=== PATIENT | female | born 1950 | race Caucasian/White ===

== ENCOUNTER 2021-08-26 18:48 | Inpatient (IN) | payer MEDICARE ==
[~2021-08-26] VITALS: Ht 160 cm; Wt 107.0 kg
[~2021-08-26 18:48] MED LIST: DULERA 100 MCG/13 GM INH; HYDROCODON-ACE1 EA10 PO; KEPPRA750 MG PO; LEVOTHYROXINE75 MC1 PO; LISINOPRIL10 MG PO; LORAZEPAM1 MG PO; LOW DOSE ASPIRI81 MG PO; MYSOLINE50 MG PO; PAXIL10 MG PO; PRAVACHOL40 MG PO; PREDNISONE20 MG PO; PROVENTIL HFA6.7 GM INH; TOPROL XL25 MG PO; TRANSDERM-SCOP1 EA TD; VERAPAMIL HCL120 MG PO; XANAX1 MG PO; ZETIA10 MG PO; ZITHROMAX250 MG PO; ZOLPIDEM TARTRA10 MG PO
[2021-08-26] MEDS ORDERED: LIPITOR40 MG PO (19:07)
[2021-08-26] MEDS ORDERED: ALLOPURINOL300 MG PO (19:07)
[2021-08-26] MEDS ORDERED: NEURONTIN300 MG PO (19:10)
[2021-08-26] MEDS ORDERED: TOPROL XL50 MG PO (19:10)
[2021-08-26] MEDS ORDERED: CYMBALTA30 MG PO (19:11)
[2021-08-27] MEDS ORDERED: IPRAT-ALBUT 0.5-3 ML INH (12:14)
[2021-08-27] MEDS ORDERED: STIOLTO RESPIMAT4 GM INH (13:47)
--- NOTE | 2021-08-27 17:16 | EKG ---
[facility] [address] [facility] [place], [place] [address] Signed Normal sinus rhythm Septal infarct , age undetermined Abnormal ECG No previous ECGs available Confirmed by YANN COWAN MD ([id number]) on 08/27/2021 5:16:34 PM Electronically Signed By: YANN COWAN MD 08/27/21 1716 PATIENT NAME: OVIDIO BENTON EDILBERTO Electrocardiogram DATE OF : 54 PHYSICIAN: YANN COWAN MD REPORT #: [id number] REPORT IS CONFIDENTIAL AND NOT TO BE RELEASED WITHOUT AUTHORIZATION
[2021-08-29] MEDS ORDERED: IPRAT-ALBUT 0.5-3 ML INH (13:03)
[2021-08-29] MEDS ORDERED: NEBULIZER UNIT XX (13:03)
[2021-09-02] MEDS ORDERED: AMLODIPINE BESY10 MG PO (11:23)
[2021-09-02] MEDS ORDERED: LOSARTAN POTASS50 MG PO (11:24)
[2021-09-02] MEDS ORDERED: PREDNISONE20 MG PO (11:26)
[2021-09-02] MEDS ORDERED: BUDESONIDE0.5 MG/2 M INH (12:20)
== END 2021-09-02 13:05 | disposition home or self-care (01) | DRG 191 ==
LOC: ED 18:48 → CCU 21:36 → MS 08-31 10:05
PROVIDERS: ADMIT Internal Medicine; ATTEND Internal Medicine
PROC: 5A09457 Assistance with Respiratory Ventilation, 24-96 Consecutive Hours, Continuous Positive Airway Pressure (ICD-10-PCS; principal; 2021-08-27)
DX: J44.1 Chronic obstructive pulmonary disease with (acute) exacerbation (principal); J96.11 Chronic respiratory failure with hypoxia; J96.12 Chronic respiratory failure with hypercapnia; I10 Essential (primary) hypertension; Z20.822 Contact with and (suspected) exposure to COVID-19; E03.9 Hypothyroidism, unspecified; E78.5 Hyperlipidemia, unspecified; I25.10 Atherosclerotic heart disease of native coronary artery without angina pectoris; Z66 Do not resuscitate; F41.1 Generalized anxiety disorder; Z87.891 Personal history of nicotine dependence; I25.2 Old myocardial infarction; Z90.49 Acquired absence of other specified parts of digestive tract; Z90.710 Acquired absence of both cervix and uterus; Z98.890 Other specified postprocedural states; Z79.82 Long term (current) use of aspirin; Z79.899 Other long term (current) drug therapy
CPT/HCPCS: 36415; 71045; 80053; 82803; 83735; 83880; 84484; 85025; 93005; 93010; 94640; 94644; 94660; 94667; 94668; 94760; 96374; 96375; 97110; 97116; 97161; 97165; 99285-25; A9270; J1650; J2920; J2930; J3475; J7512; U0003

== ENCOUNTER 2021-09-10 18:12 | Observation (INO) | payer MEDICARE ==
[~2021-09-10] VITALS: Ht 160 cm; Wt 101.0 kg
[~2021-09-10 18:12] MED LIST changes: +ALLOPURINOL300 MG PO; +AMLODIPINE BESY10 MG PO; +BUDESONIDE0.5 MG/2 M INH; +CYMBALTA30 MG PO; +IPRAT-ALBUT 0.5-3 ML INH; +LIPITOR40 MG PO; +LOSARTAN POTASS50 MG PO; +NEBULIZER UNIT XX; +NEURONTIN300 MG PO; +STIOLTO RESPIMAT4 GM INH; +TOPROL XL50 MG PO
--- OUTSIDE RECORDS SUMMARY | 2021-09-10 18:20 | XMS ---
PreManage Notification: OVIDIO BENTON Security Soft Tile Setter Events No recent Security Events currently on file CRITERIA MET - [facility] - Visits in 30 Days CARE PROVIDERS UNIQUE MIJARES Nurse Practitioner: Family Current PHONE: Unknown DENISHA BURNETT Nurse Practitioner: Primary Care Current PHONE: Unknown Carlos has no Care Guidelines for this patient. Alessandro VISIT COUNT (12 MO.) 1 [facility] [address] TOTAL 5 NOTE: Visits indicate total known visits. ED/UCC VISIT TRACKING (12 MO.) 09/10/2021 18:13 KATE Espinoza TYPE: Emergency COMPLAINT: - DIFFICULTY BREATHING 08/26/2021 18:48 [facility] [place] TYPE: Emergency COMPLAINT: - SOB 04/18/2021 18:55 [facility] DIAGNOSES: - Chronic obstructive pulmonary disease with (acute) exacerbation - Respiratory arrest - Acute respiratory failure with hypercapnia - Code 3 03/14/2021 13:36 Adal Berger [facility] TYPE: Emergency DIAGNOSES: - Chronic obstructive pulmonary disease with (acute) exacerbation - Wheezing - SOB 11/05/2020 11:27 [facility] [place] TYPE: Emergency DIAGNOSES: - Chronic obstructive pulmonary disease with (acute) exacerbation - CHEST PAIUN SHORTNESS OF BREATH INPATIENT VISIT TRACKING (12 MO.) 08/26/2021 21:36 KATE Chase [place] TYPE: Medical Surgical COMPLAINT: - COPD EXACERBATION DIAGNOSES: - Hypothyroidism, unspecified - Essential (primary) hypertension - detention (current) use of aspirin - Atherosclerotic heart disease of [place] coronary artery without angina pectoris - Hyperlipidemia, unspecified - Chronic respiratory failure with hypercapnia - Hyperlipidemia, unspecified - Acquired absence of other specified parts of digestive tract - Other specified postprocedural states - Acquired absence of both cervix and uterus - Generalized anxiety disorder - Atherosclerotic heart disease of [place] coronary artery without angina pectoris - Contact with and (suspected) exposure to COVID-19 - Personal history of nicotine dependence - Other mcfp (current) drug therapy - Chronic obstructive pulmonary disease with (acute) exacerbation - Other mcfp (current) drug therapy - Personal history of nicotine dependence - Acquired absence of other specified parts of digestive tract - Hypothyroidism, unspecified - Chronic respiratory failure with hypoxia - Acquired absence of both cervix and uterus - Essential (primary) hypertension - detention (current) use of aspirin - Do not resuscitate - Chronic respiratory failure with hypercapnia - Old myocardial infarction - Do not resuscitate - Other specified postprocedural states - Generalized anxiety disorder - Old myocardial infarction - Chronic respiratory failure with hypoxia 04/18/2021 18:55 Pjabiola Berger [facility] TYPE: Medical Surgical DIAGNOSES: - Chronic obstructive pulmonary disease with (acute) exacerbation - Essential (primary) hypertension - Acute respiratory failure with hypercapnia - Respiratory arrest [id number]
--- NOTE | 2021-09-10 23:34 | NUR ---
Patient alert, oriented, and cooperative. States that she was here last week and remembers me. She is unsure what prompted the asthma attack she had today but feels it is now resolved. Drowsy after Ativan admin in ED. Dislikes BiPAP and feels she doesnt need it, back on NC at this time. Will continue to monitor.
--- NOTE | 2021-09-11 08:02 | NUR ---
PT SITTING UP IN BED EATING BREAKFAST. V/S STABLE AM ASSESSMENT COMPLETE. PT ALERT AND ORIENTED THIS AM
--- NOTE | 2021-09-11 08:49 | NUR ---
MIKHAIL BOWIE WITH CASE MANAGEMENT IN PT ROOM AT BEDSIDE.
--- NOTE | 2021-09-11 09:15 | NUR ---
Spoke with Leeanne. She returned for admission following problems with her asthma and COPD. Pt again would like to dc to a SNF, but would only like [facility]. She is staying with her sister and feels part of the problems is her sister has cats and this sets her asthma off. She cannot return home to [place], [place] as she has no one to assist her. She is wanting to move to [place] or [place] and has put in applications for low income housing. She is not sure if she would qualify for OHP or fpc medicaid. Let her know I will get her the numbers. I will also fax her chart to [facility] in [place] to check for beds. She does agree to possible placement at [facility], but is not completely sure she could go. Will check for a bed there also.
--- NOTE | 2021-09-11 09:45 | NUR ---
PT RESTING BACK IN BED, SHE IS ALERT AND ORIENTED, BED ALARM ON FOR PT SAFETY SHE DID EXIT BED TO BATHROOM THIS EARLY AM ON SENIOR SOFTWARE ENGINEER WITHOUT CALLING. PT REQUEST MENU FOR HER DIET SHE SAYS THE GENERAL FOOD ID TOO HEAVY ON HER STOMACH. PT DID CONSUME 100% OF BREAKAST AND 600ML OF FLUIDS THIS AM, AND ASKED FOR SECOND CUP OF TEA, PROVIDED DECAF.
--- NOTE | 2021-09-11 11:05 | NUR ---
PT CALLED NURSES STATION TO REQUEST ASSISTANCE TO THE BATHROOM, PT UP WITH SBA AMBULATED WELL STEADY GAIT. TOLERATED ACTIVITY WELL. PT HAD BM AND VOIDED 1000ML OF CLEAR YELLOW URINE. PT REPORTS "I HAVE A SORE SPOT ON MY BUTT, DO YOU HAVE SOMETHING TO PUT ON IT" RN PLACED BARRIER CREAM TO SMALL ONE INCH ROUND FRICTION AREA ON COCCYX, APPEARS TO BE HEALING, NOT OPEN, IN GLUTEAL CLEFT
--- NOTE | 2021-09-11 11:45 | NUR ---
ROUNDING WITH INTO PT ROOM, ASSESS PT AND DISCUSS CONTIUED PLAN OF CARE, PLAN TO TRANSFER TO MED/SURG TODAY AND THEN AT DISCHARGE PLAN FOR LONGER SLOWER TITRATION OF STEROIDS.
--- NOTE | 2021-09-11 15:38 | NUR ---
PT UP TO THE BATHROOM WITH ALONZO BOWIE AT THIS TIME, TOLERATED ACTIVITY WELL. MONITOR ON STANDBY, WILL SPOT CHECK AND V/S ON M/S SCHEDULE. SHE HAS FRIEND IN AT BEDSIDE VISITING.
--- NOTE | 2021-09-11 17:27 | EKG ---
[facility] [address] [facility] [place], [place] [address] Signed Sinus rhythm with short [place] Septal infarct (cited on or before 26-AUG-2021) Abnormal ECG When compared with ECG of 26-AUG-2021 19:10, No significant change was found Confirmed by YANN COWAN MD ([id number]) on 09/11/2021 5:27:41 PM Electronically Signed By: YANN COWAN MD 09/11/21 1727 PATIENT NAME: OVIDIO BENTON EDILBERTO Electrocardiogram DATE OF : 54 PHYSICIAN: YANN COWAN MD REPORT #: [id number] REPORT IS CONFIDENTIAL AND NOT TO BE RELEASED WITHOUT AUTHORIZATION
--- NOTE | 2021-09-11 19:31 | NUR ---
REPORT RECEIVED FROM SILVA RN, WILL CONTINUE PLAN OF CARE.
--- NOTE | 2021-09-11 20:35 | NUR ---
PT SITTING UP IN BED, AWAKE AND ALERT ON 2L O2 NC. PT REPORTS NO PAIN OR SHORTNESS OF BREATH WHEN ASKED AT THIS TIME. PT FINISHED WITH 100% OF HER DINNER. PT VITALS TAKEN AT THIS TIME (SEE CHART). SCHEDULED MEDICATIONS THEN ADMINISTERED (SEE MAR). PT ASSESSED AFTERWARDS. PT ALERT, ORIENTED, REPORTS NO PAIN OR SHORTNESS OF BREATH AT THIS TIME. LUNGS ARE COARSE IN RIGHT UPPPER AND LOWER LOBE, DIMINISHED IN LEFT UPPER LOBE AND COARSE IN THE LEFT LOWER LOBE. BOWEL TONES ACTIVE, ABDOMEN SOFT. RADIAL AND PEDAL PULSES STRONG, PT DENIES NUMBNESS OR TINGLING TO HER EXTREMITIES. PT REPORTS NO FURTHER NEEDS AND WAS PROVIDED WITH ICE WATER. PT REPORTS SHE VOIDED, URINAL HAT IN TOILET EMPTIED OF 200ML YELLOW URINE. CALL LIGHT IN REACH, BED IN LOWEST POSITION, WILL CONTINUE PLAN OF CARE.
--- NOTE | 2021-09-11 23:15 | NUR ---
PT LAYING IN BED PRONE POSITION ON 2L O2 NC READING A BOOK. PT REPORTS NO NEEDS AT THIS TIME AND DENIES ANY PAIN OR SHORTNESS OF BREATH. URINAL HAT EMPTIED OF 500ML CLEAR YELLOW URINE. CALL LIGHT IN REACH, BED IN LOWEST POSITION, WILL CONTINUE PLAN OF CARE.
--- NOTE | 2021-09-12 03:12 | NUR ---
PT LAYING IN BED SLEEPING AT THIS TIME. RESPIRATIONS NOTED AND ARE EVEN AND UNLABORED. PT IN NO APPARENT DISTRESS AND WAS LEFT UNDISTURBED. WILL CONTINUE PLAN OF CARE. CALL LIGHT IN REACH, BED IN LOWEST POSITION.
--- NOTE | 2021-09-12 03:35 | NUR ---
PT USED CALL LIGHT, PT SITTING UP IN BED ALERT AND ORIENTED ON 2L O2 NC. PT REQUESTED SNACKS, ICE WATER, AND HOT TEA WHICH WERE PROVIDED. PT REPORTED NO FURTHER NEEDS AFTERWARDS WHEN ASKED. CALL LIGHT IN REACH, WILL CONTINUE PLAN OF CARE.
--- NOTE | 2021-09-12 04:38 | NUR ---
RT FINISHED SCHEDULED NEB TREATMENT. PT SITTING UP IN BED ALERT AND ORIENTED X4 ON 2L O2 NC. PT DENIES SHORTNESS OF BREATH OR PAIN AT THIS TIME WHEN ASKED. PT VITALS TAKEN AND PT ASSESSED (SEE CHART). PT PROVIDED WITH ICE WATER. PT REPORTS NO FURTHER NEEDS AT THIS TIME WHEN ASKED, WILL CONTINUE PLAN OF CARE. CALL LIGHT IN REACH, BED IN LOWEST POSITION.
--- NOTE | 2021-09-12 06:16 | NUR ---
PT SITTING UP IN BED ALERT AND ORIENTED ON 2L O2 NC. PT PROVIDED WITH ICE WATER. SCHEDULED LEVOTHYROXINE ADMINISTERED (SEE MAR). PT REPORTS NO FURTHER NEEDS WHEN ASKED AT THIS TIME, WILLC CONTINUE PLAN OF CARE. CALL LIGHT IN REACH.
--- NOTE | 2021-09-12 07:30 | NUR ---
REPORT RECIEVED. CARE OF PT ASSUMED AT THIS TIME.
--- NOTE | 2021-09-12 09:30 | NUR ---
DR COWAN IN TO SEE PT. PT STATES SHE WOULD LIKE TO GO TO A RESIDENTIAL FOR REHAB. CASE MANAGEMENT IN ROOM TO CONSULT WELL.
--- NOTE | 2021-09-12 10:30 | NUR ---
PT AMBULATING IN [place] WITH PHYSICAL THERAPIST ON 2 L NC.
--- NOTE | 2021-09-12 11:28 | NUR ---
INTO PATEINT ROOM. DISCUSSED WITH PATIENT THAT AT THIS TIME SHE MAY NOT HAVE A SKILLED THAT WOULD ALLOW FOR ADMISSION TO [facility], BUT HER CHART IS BEING REVIEWED. PATIENT STATES SHE IS AWARE THAT SHE WILL LIKELY NOT QUALIFY AND FEELS SAFE TO DISCHARGE HOME IF THAT IS THE CASE. PATIENT STATES THAT SHE WOULD BE UNABLE TO PAY OUT OF POCKET IF SHE DID NOT QUALIFY FOR SKILLED PLACEMENT. I ADVISED THE PATIENT THAT I WILLM ALLOW SOME TIME FOR [facility] TO REVIEW HER CHART AND THEN UPDATE HER WITH A DETERMINATION. CYNTHIA BOWIE AND DR. COWAN NOTIFIED.
--- NOTE | 2021-09-12 13:50 | NUR ---
PT CLEARED TO AMBULATE INDEPENDENTLY IN ROOM BY PHYSICAL THERAPY. PLAN OF CARE ESTABLISHED WITH CASE MANAGEMENT FOR PATIENT TO DISCHARGE IN THE AM.
--- NOTE | 2021-09-12 14:47 | NUR ---
VERN CALL FROM SNEHAL FROM [facility]. AT THIS TIME PATIENT IS DECLINED FOR PLACEMENT DUE TO NO SKILLED NEEDS AND INSURANCE PLAN OUT OF NETWORK. DR. COWAN AND PATIENT NOTIFIED.
--- NOTE | 2021-09-12 15:48 | NUR ---
Medications reconciled
--- NOTE | 2021-09-12 17:43 | NUR ---
left wrist IV infiltrated. Dc'd at this time and new Iv started in left hand. flushes well. well tolerated by pt. Medications administered. PT now eating. call light within reach. no further needs at this time.
--- NOTE | 2021-09-12 19:31 | NUR ---
REPORT RECEIVED FROM SILVA RN, WILL CONTINUE PLAN OF CARE.
--- NOTE | 2021-09-12 19:45 | NUR ---
PT SITTING UP IN BED ALERT AND ORIENTED X4 ON 2L O2 NC. PT DENIES ANY PAIN AT THIS TIME BUT DOES REPORTS SOME MILD SHORTNESS OF BREATH AND A COUGH WHICH PT STATES FEELS SIMILAR TO HER BASELINE AT HOME. PT UP TO THE BATHROOM TO VOID AND BACK TO THE BED. VITALS THEN ASSESSED (SEE CHART). PT PROVIDED WITH ICE WATER AND SNACKS PER HER REQUEST AND REPORTS NO FURTHER NEEDS AT THIS TIME. RT IN TO DO A SCHEDULED NEB TREATMENT, WILL CONTINUE PLAN OF CARE. CALL LIGHT IN REACH, BED IN LOWEST POSTION.
--- NOTE | 2021-09-12 21:30 | NUR ---
PT SITTING UP IN BED WATCHING TV ALERT AND ORIENTED ON 2L O2 NC. VITALS ASSESSED AT THIS TIME AND SCHEDULED MEDICATIONS ADMINISTERED (SEE MAR). PT THEN ASSESSED (SEE CHART). PT REPORTS HEART RYTHM REGULAR, LUNGS DIMINISHED AND COARSE THROUGHOUT, ACTIVE BOWEL TONES PRESENT, STRONG RADIAL AND PEDAL PULSES NOTED. PT REPORTS NO NEEDS AT THIS TIME WHEN ASKED AND STATES SHE WILL BE GOING TO SLEEP SOON. PT RESTING IN BED, CALL LIGHT IN REACH, BED IN LOWEST POSITION, WILL CONTINUE PLAN OF CARE.
--- NOTE | 2021-09-12 22:25 | NUR ---
PT SITTING UP IN BED AWAKE AND ALERT ON 2L O2 NC. PT INFORMED ON TRANSFER TO THE MEDICAL SURGICAL UNIT. RI REPORTS NO FURTHER NEEDS AT THIS TIME, WILL CONTINUE PLAN OF CARE. CALL LIGHT IN REACH.
--- NOTE | 2021-09-12 22:50 | NUR ---
2250 - PT TRANSFERRED TO ROOM 113. PT ALERT, ORIENTED AND COOPERATIVE, O2 2L O2 CRONIC
--- NOTE | 2021-09-12 22:55 | NUR ---
pt transfered to [facility] 113 from [facility] via bed with this rn concurrent review and oracle data warehouse developer, ice water provided, no further needs at this time, pt oriantated to new room
--- NOTE | 2021-09-12 22:58 | NUR ---
SITTING EDGE OF BED, INDEPENDENT TO BR, O2 2L NC. LUNGS DIM T/O. NO SOB NOTED ON RETURN. COOP WITH ASSESSMENT. NERISSA LEVON PATENT. NO C/O PAIN. ORIENTED TO ROOM AND ROUTINES. PLEASANT, ALERT AND ORIENTED X3.
--- NOTE | 2021-09-13 01:00 | NUR ---
RESTING, O2 2LNC, IN PLACE, NO DISTRESS, CALL LIGHT AND FLUIDS AT HANDS REACH
--- NOTE | 2021-09-13 03:47 | NUR ---
Ressting, O2 2L nc in place, turns and repositions self, call light at hands reach
--- NOTE | 2021-09-13 04:30 | NUR ---
IN TO GET VITALS, PT HAD CALLED TO GET HOT TEA AND LITO CRACKERS, ICE WATER FILLED, PT INDP TO THE TOILET, NO FURTHER NEEDS AT THIS TIME
--- NOTE | 2021-09-13 04:38 | NUR ---
PT SITTING IN BED, WATCHING TV, NO C/O PAIN. O2 2LNC IN PLACE, LUNGS WITH EXP WHEEZING DENIES SOB, STATED "ETHEL FEELING BETTER, READY TO GO HOME TODAY". TOLERATING LIQUIDS WELL, NO EMESIS. LEVOTHYROID GIVEN AT THIS TIME ON REQUEST.
--- NOTE | 2021-09-13 04:40 | NUR ---
PT TRANSFERRED FROM ICU, ON 2LNC AT BASELINE, LUNGS WITH EXP WHEEZING AND DIM AT BASES. NO SOB WITH EXERTION, INDEPENDENT IN ROOM, WALKS TO BR, VOIDING QS, NO BM THIS SHIFT. TOLERATING LIQUIDS, NO BM. HAS SLEPT OFF AND ON THIS SHIFT. NO C/O PAIN. STATS SHE FEELS MUCH IMPROVED AND READY TO GO [place]. SL PATENT. USES CALL LIGHT
--- NOTE | 2021-09-13 07:25 | NUR ---
REPORT RECEIVED FROM NIGHT RN AND PT. CARE RESUMED. PT. IS ALERT AND DENIES PAIN OR SOB AT THIS TIME. BROUGHT TEA AND LEFT RESTING WITH CALL LIGHT IN REACH.
--- NOTE | 2021-09-13 07:45 | NUR ---
PT. DENIES SOB OR PAIN. ON 2L O2 NC AND O2 SAT IS 100%. DESAT. WITH EXERTION. PT. IS ALERT AND ORIENTED TO ALL. IV SITE WNL AND FLUSHES. DISCUSSED MEDS, POC. LEFT RESTING WITH CALL LIGHT IN REACH.
[2021-09-13] MEDS ORDERED: PREDNISONE10 MG PO (11:40)
--- NOTE | 2021-09-13 11:58 | NUR ---
ALL DISCHARGE INSTRUCTIONS REVIEWED WITH PT. AND QUESTIONS ANSWERED. IV REMOVED BY REGISTERED NURSE BEHAVIORAL HEALTH. PT. WILL DC AFTER LUNCH
== END 2021-09-13 12:35 | disposition home or self-care (01) ==
LOC: ED 18:12 → CCU 18:14 → MS 09-12 22:55
PROVIDERS: ADMIT Internal Medicine; ATTEND Internal Medicine
DX: J44.1 Chronic obstructive pulmonary disease with (acute) exacerbation (principal); J96.22 Acute and chronic respiratory failure with hypercapnia; J96.21 Acute and chronic respiratory failure with hypoxia; I10 Essential (primary) hypertension; E03.9 Hypothyroidism, unspecified; E78.5 Hyperlipidemia, unspecified; I25.10 Atherosclerotic heart disease of native coronary artery without angina pectoris; F41.9 Anxiety disorder, unspecified; G89.4 Chronic pain syndrome; Z20.822 Contact with and (suspected) exposure to COVID-19; Z88.5 Allergy status to narcotic agent; Z88.8 Allergy status to other drugs, medicaments and biological substances; Z66 Do not resuscitate
CPT/HCPCS: 36415; 36600; 71045; 80053; 82803; 83735; 83880; 84484; 85025; 93005; 93010; 94640; 94660; 94760; 96374; 96375; 99285-25; C9803; J1650; J2060; J2930; J7512; U0003

== ENCOUNTER 2021-09-29 22:13 | Emergency (ER) | payer MEDICARE ==
[~2021-09-29] VITALS: Ht 160 cm; Wt 99.8 kg
[~2021-09-29 22:13] MED LIST changes: +PREDNISONE10 MG PO
--- OUTSIDE RECORDS SUMMARY | 2021-09-29 22:16 | XMS ---
PreManage Notification: OVIDIO BENTON Security Citrix Lead Events No recent Security Events currently on file CRITERIA MET - [facility] - 2 Visits in 30 Days CARE PROVIDERS UNIQUE MIJARES Nurse Practitioner: Family Current PHONE: Unknown Carlos has no Care Guidelines for this patient. Alessandro V[facility] (12 MO.) [facility] [address] TOTAL 6 NOTE: Visits indicate total known visits. ED/UCC VISIT TRACKING (12 MO.) 09/29/2021 22:13 [facility] [place] TYPE: Emergency COMPLAINT: - SOB 09/10/2021 18:13 K[facility] Chase [place] TYPE: Emergency COMPLAINT: - DIFFICULTY BREATHING 08/26/2021 18:48 KATE Chase [place] TYPE: Emergency COMPLAINT: - SOB 04/18/2021 18:55 Adal Berger [facility] TYPE: Emergency DIAGNOSES: - Chronic obstructive pulmonary disease with (acute) exacerbation - Respiratory arrest - Acute respiratory failure with hypercapnia - Code 3 03/14/2021 13:36 Adal Berger [facility] TYPE: Emergency DIAGNOSES: - Chronic obstructive pulmonary disease with (acute) exacerbation - Wheezing - SOB 11/05/2020 11:27 [facility] [place] TYPE: Emergency DIAGNOSES: - Chronic obstructive pulmonary disease with (acute) exacerbation - CHEST PAIUN SHORTNESS OF BREATH INPATIENT VISIT TRACKING (12 MO.) 09/10/2021 18:14 KATE Chase [place] TYPE: Observation COMPLAINT: - RESPIRATRORY FAILURE DIAGNOSES: - Hyperlipidemia, unspecified - Hypothyroidism, unspecified - Acute and chronic respiratory failure with hypercapnia - Allergy status to narcotic agent - Atherosclerotic heart disease of [place] coronary artery without angina pectoris - Acute and chronic respiratory failure with hypoxia - Anxiety disorder, unspecified - Allergy status to other drugs, medicaments and biological substances - Chronic pain syndrome - Contact with and (suspected) exposure to COVID-19 - Chronic obstructive pulmonary disease with (acute) exacerbation - Do not resuscitate - Essential (primary) hypertension 08/26/2021 21:[address] [facility] TYPE: Medical Surgical COMPLAINT: - COPD EXACERBATION DIAGNOSES: - Hypothyroidism, unspecified - Essential (primary) hypertension - dev manager (current) use of aspirin - Atherosclerotic heart disease of [place] coronary artery without angina pectoris - Hyperlipidemia, unspecified - Chronic respiratory failure with hypercapnia - Hyperlipidemia, unspecified - Acquired absence of other specified parts of digestive tract - Other specified postprocedural states - Acquired absence of both cervix and uterus - Generalized anxiety disorder - Atherosclerotic heart disease of [place] coronary artery without angina pectoris - Contact [...] and uterus - Essential (primary) hypertension - senior care (current) use of aspirin - Do not resuscitate - Chronic respiratory failure with hypercapnia - Old myocardial infarction - Do not resuscitate - Other specified postprocedural states - Generalized anxiety disorder - Old myocardial infarction - Chronic respiratory failure with hypoxia 04/18/2021 18:55 Adal Berger [facility] TYPE: Medical Surgical DIAGNOSES: - Chronic obstructive pulmonary disease with (acute) exacerbation - Essential (primary) hypertension - Acute respiratory failure with hypercapnia - Respiratory arrest [email or web address]
[2021-09-29] MEDS ORDERED: PREDNISONE10 MG PO (22:30)
[2021-09-29] MEDS ORDERED: ALPRAZOLAM0.5 MG PO (22:31)
== END 2021-09-30 01:07 | disposition home or self-care (01) ==
LOC: ED 22:13
DX: J44.1 Chronic obstructive pulmonary disease with (acute) exacerbation (principal); I10 Essential (primary) hypertension; E78.00 Pure hypercholesterolemia, unspecified; E03.9 Hypothyroidism, unspecified; J45.909 Unspecified asthma, uncomplicated; I25.2 Old myocardial infarction; Z87.891 Personal history of nicotine dependence; Z88.8 Allergy status to other drugs, medicaments and biological substances; Z88.5 Allergy status to narcotic agent; Z79.899 Other long term (current) drug therapy; Z79.51 Long term (current) use of inhaled steroids; Z79.82 Long term (current) use of aspirin; Z79.52 Long term (current) use of systemic steroids; Z20.822 Contact with and (suspected) exposure to COVID-19
CPT/HCPCS: 36415; 71045; 80053; 82803; 83880; 85025; 94644; 94660; 96374; 96375; 99285-25; J2060; J2930; U0003

== ENCOUNTER 2021-10-05 19:56 | Emergency (ER) | payer MEDICARE, OTHER ==
[~2021-10-05] VITALS: Ht 165.1 cm; Wt 104.3 kg
[~2021-10-05 19:56] MED LIST changes: +ALPRAZOLAM0.5 MG PO
--- OUTSIDE RECORDS SUMMARY | 2021-10-05 19:58 | XMS ---
PreManage Notification: OVIDIO BENTON Security Janitor Helper Events No recent Security Events currently on file CRITERIA MET - [facility] - [facility] UNIQUE MIJARES Nurse Practitioner: Current PHONE: Unknown Carlos has no Care Guidelines for this patient. EPayam VISIT COUNT (12 MO.) 1 [facility] [address] TOTAL 7 NOTE: Visits indicate total known visits. ED/UCC VISIT TRACKING (12 MO.) 10/05/2021 19:57 [facility] [place] TYPE: Emergency COMPLAINT: - SHORTNESS OF BREATH 09/29/2021 22:13 [facility] [place] TYPE: Emergency COMPLAINT: - SOB DIAGNOSES: - Pure hypercholesterolemia, unspecified - Old myocardial infarction - snf (current) use of systemic steroids - Other snf (current) drug therapy - Unspecified asthma, uncomplicated - Essential (primary) hypertension - Personal history of nicotine dependence - Contact with and (suspected) exposure to COVID-19 - exterminator termite (current) use of aspirin - Allergy status to narcotic agent - Allergy status to other drugs, medicaments and biological substances - Chronic obstructive pulmonary disease with (acute) exacerbation - exterminator termite (current) use of inhaled steroids - Hypothyroidism, unspecified - Shortness of breath 09/10/2021 18:13 [facility] TYPE: Emergency COMPLAINT: - DIFFICULTY BREATHING 08/26/2021 18:48 K[facility] Chase [place] TYPE: Emergency COMPLAINT: - SOB 04/18/2021 18:55 [facility] TYPE: Emergency DIAGNOSES: - Chronic obstructive pulmonary disease with (acute) exacerbation - Respiratory arrest - Acute respiratory failure with hypercapnia - Code 3 03/14/2021 13:36 [facility] TYPE: Emergency DIAGNOSES: - Chronic obstructive pulmonary disease with (acute) exacerbation - Wheezing - SOB 11/05/2020 11:27 [facility] [place] TYPE: Emergency DIAGNOSES: - Chronic obstructive pulmonary disease with (acute) exacerbation - CHEST PAIUN SHORTNESS OF BREATH INPATIENT VISIT TRACKING (12 MO.) 09/10/2021 18:14 K[facility] [place] TYPE: Observation COMPLAINT: - RESPIRATRORY FAILURE DIAGNOSES: - Hyperlipidemia, unspecified - Hypothyroidism, unspecified - Acute and chronic respiratory failure with hypercapnia - Allergy status to narcotic agent - Atherosclerotic heart disease of [place] coronary artery without angina pectoris - Acute and chronic respiratory failure with hypoxia - Anxiety disorder, unspecified - Allergy status to other drugs, medicaments and biological substances - Chronic pain syndrome - Contact with and (suspected) exposure to COVID-19 - Chronic obstructive pulmonary disease with (acute) exacerbation - Do not resuscitate - Essential (primary) hypertension 08/26/2021 21:36 [facility] [place] TYPE: Medical Surgical COMPLAINT: - COPD EXACERBATION DIAGNOSES: - Hypothyroidism, unspecified - Essential (primary) hypertension - snf (current) use of aspirin - Atherosclerotic heart disease of [place] coronary artery without angina pectoris - Hyperlipidemia, unspecified - Chronic respiratory failure with hypercapnia - Hyperlipidemia, unspecified - Acquired absence of other specified parts of digestive tract - Other specified postprocedural states - Acquired absence of both cervix and uterus - Generalized anxiety disorder - Atherosclerotic heart disease of [place] coronary artery without angina pectoris - Contact with and (suspected) exposure to COVID-19 - Personal history of nicotine dependence - Other extermination supervisor (current) drug therapy - Chronic obstructive pulmonary disease with (acute) exacerbation - Other snf (current) drug therapy - Personal history of nicotine dependence - Acquired absence of other specified parts of digestive tract - Hypothyroidism, unspecified - Chronic respiratory failure with hypoxia - Acquired absence of both cervix and uterus - Essential (primary) hypertension - snf (current) use of aspirin - Do not resuscitate - Chronic respiratory failure with hypercapnia - Old myocardial infarction - Do not resuscitate - Other specified postprocedural states - Generalized anxiety disorder - Old myocardial infarction - Chronic respiratory failure with hypoxia 04/18/2021 18:55 [facility] DIAGNOSES: - Chronic obstructive pulmonary disease with (acute) exacerbation - Essential (primary) hypertension - Acute respiratory failure with hypercapnia - Respiratory arrest [id number]
[2021-10-05] MEDS ORDERED: PREDNISONE20 MG PO (21:59)
[2021-10-05] MEDS ORDERED: AZITHROMYCIN500 MG PO (21:59)
--- NOTE | 2021-10-06 08:30 | EKG ---
[facility] [address] [facility] [facility] [place], [place] [address] Signed Sinus rhythm with short [place] Otherwise normal ECG No previous ECGs available Confirmed by GAGANDEEP OLIVA MD ([id number]) on 10/06/2021 8:30:28 AM Electronically Signed By: GAGANDEEP OLIVA MD 10/06/21 0830 PATIENT NAME: OVIDIO BENTON EDILBERTO Electrocardiogram DATE OF : 54 PHYSICIAN: GAGANDEEP OLIVA MD REPORT #: [id number] REPORT IS CONFIDENTIAL AND NOT TO BE RELEASED WITHOUT AUTHORIZATION
== END 2021-10-05 22:25 | disposition home or self-care (01) ==
LOC: ED 19:56
DX: J44.1 Chronic obstructive pulmonary disease with (acute) exacerbation (principal); I10 Essential (primary) hypertension; E78.00 Pure hypercholesterolemia, unspecified; E03.9 Hypothyroidism, unspecified; I25.2 Old myocardial infarction; I12.0 Hypertensive chronic kidney disease with stage 5 chronic kidney disease or end stage renal disease; N18.6 End stage renal disease; J44.9 Chronic obstructive pulmonary disease, unspecified; Z87.891 Personal history of nicotine dependence; Z88.8 Allergy status to other drugs, medicaments and biological substances; Z88.5 Allergy status to narcotic agent; Z79.899 Other long term (current) drug therapy; Z79.82 Long term (current) use of aspirin; Z79.52 Long term (current) use of systemic steroids; Z20.822 Contact with and (suspected) exposure to COVID-19
CPT/HCPCS: 36415; 36600; 71045; 80053; 82803; 83880; 85025; 87502; 93005; 93010; 94640; 96374; 99285-25; C9803; J2930; U0003

== ENCOUNTER 2021-10-09 14:04 | Emergency (ER) | payer MEDICARE ==
[~2021-10-09] VITALS: Ht 170.2 cm; Wt 104.3 kg
[~2021-10-09 14:04] MED LIST changes: +AZITHROMYCIN500 MG PO
--- OUTSIDE RECORDS SUMMARY | 2021-10-09 14:06 | XMS ---
PreManage Notification: OVIDIO BENTON Security Electromedical Equipment Technician Events No recent Security Events currently on file CRITERIA MET - [facility] - [facility] - 2 Visits in 30 Days - 6 ED Visits in 6 Months CARE PROVIDERS UNIQUE MIJARES Nurse Practitioner: Current PHONE: Unknown Carlos has no Care Guidelines for this patient. E.Booker. [facility] (12 MO.) [facility] [address] TOTAL 8 NOTE: Visits indicate total known visits. ED/UCC VISIT TRACKING (12 MO.) 10/09/2021 14:04 [facility] TYPE: Emergency COMPLAINT: - CHEST PAIN 10/05/2021 19:57 [facility] TYPE: Emergency COMPLAINT: - SHORTNESS OF BREATH DIAGNOSES: - Hypothyroidism, unspecified - Allergy status to other drugs, medicaments and biological substances - Chronic obstructive pulmonary disease with (acute) exacerbation - Allergy status to narcotic agent - End stage renal disease - Chronic obstructive pulmonary disease, unspecified - Other assistant terminal manager (current) drug therapy - Old myocardial infarction - Shortness of breath - Personal history of nicotine dependence - halfway (current) use of systemic steroids - intermission coordinator (current) use of aspirin - Contact with and (suspected) exposure to COVID-19 - Pure hypercholesterolemia, unspecified - Essential (primary) hypertension - Hypertensive chronic kidney disease with stage 5 chronic kidney disease or end stage renal disease 09/29/2021 22:13 [facility] TYPE: Emergency COMPLAINT: - SOB DIAGNOSES: - Pure hypercholesterolemia, unspecified - Old myocardial infarction - halfway (current) use of systemic steroids - Other assistant terminal manager (current) drug therapy - Unspecified asthma, uncomplicated - Essential (primary) hypertension - Personal history of nicotine dependence - Contact with and (suspected) exposure to COVID-19 - halfway (current) use of aspirin - Allergy status to narcotic agent - Allergy status to other drugs, medicaments and biological substances - Chronic obstructive pulmonary disease with (acute) exacerbation - halfway (current) use of inhaled steroids - Hypothyroidism, unspecified - Shortness of breath 09/10/2021 18:13 [facility] TYPE: Emergency COMPLAINT: - DIFFICULTY BREATHING 08/26/2021 18:48 [facility] TYPE: Emergency COMPLAINT: - SOB 04/18/2021 18:55 [facility] TYPE: Emergency DIAGNOSES: - Chronic obstructive pulmonary disease with (acute) exacerbation - Respiratory arrest - Acute respiratory failure with hypercapnia - Code 3 03/14/2021 13:36 Ad[facility] Berger [facility] TYPE: Emergency DIAGNOSES: - Chronic obstructive pulmonary disease with (acute) exacerbation - Wheezing - SOB 11/05/2020 11:27 [facility] TYPE: Emergency DIAGNOSES: - Chronic obstructive pulmonary disease with (acute) exacerbation - CHEST PAIUN SHORTNESS OF BREATH INPATIENT VISIT TRACKING (12 MO.) 09/10/2021 18:14 [facility] TYPE: Observation COMPLAINT: - RESPIRATRORY FAILURE DIAGNOSES: - Hyperlipidemia, unspecified - Hypothyroidism, unspecified - Acute and chronic respiratory failure with hypercapnia - Allergy status to narcotic agent - Atherosclerotic heart disease of [place] coronary artery without angina pectoris - Acute [...] Hypothyroidism, unspecified - Essential (primary) hypertension - intermission coordinator (current) use of aspirin - Atherosclerotic heart disease of [place] coronary artery without angina pectoris - Hyperlipidemia, unspecified - Chronic respiratory failure with hypercapnia - Hyperlipidemia, unspecified - Acquired absence of other specified parts of digestive tract - Other specified postprocedural states - Acquired absence of both cervix and uterus - Generalized anxiety disorder - Atherosclerotic heart disease of [place] coronary artery without angina pectoris - Contact with and (suspected) exposure to COVID-19 - Personal history of nicotine dependence - Other alf (current) drug therapy - Chronic obstructive pulmonary disease with (acute) exacerbation - Other alf (current) drug therapy - Personal history of nicotine dependence - Acquired absence of other specified parts of digestive tract - Hypothyroidism, unspecified - Chronic respiratory failure with hypoxia - Acquired absence of both cervix and uterus - Essential (primary) hypertension - intermission coordinator (current) use of aspirin - Do not resuscitate - Chronic respiratory failure with hypercapnia - Old myocardial infarction - Do not resuscitate - Other specified postprocedural states - Generalized anxiety disorder - Old myocardial infarction - Chronic respiratory failure with hypoxia 04/18/2021 18:55 Ad[facility] TYPE: Medical Surgical DIAGNOSES: - Chronic obstructive pulmonary disease with (acute) exacerbation - Essential (primary) hypertension - Acute respiratory failure with hypercapnia - Respiratory arrest [id number]
[2021-10-09] MEDS ORDERED: OMEPRAZOLE20 MG PO (14:21)
[2021-10-09] MEDS ORDERED: MORPHINE S10 MG/5 ML PO (14:22)
--- NOTE | 2021-10-10 17:20 | EKG ---
[facility] [address] [place], [place] [address] Signed Sinus tachycardia Otherwise normal ECG No previous ECGs available Confirmed by YANN COWAN MD ([id number]) on 10/10/2021 5:20:26 PM Electronically Signed By: YANN COWAN MD 10/10/21 1720 PATIENT NAME: OVIDIO BENTON EDILBERTO Electrocardiogram DATE OF : 54 PHYSICIAN: YANN COWAN MD REPORT #: [id number] REPORT IS CONFIDENTIAL AND NOT TO BE RELEASED WITHOUT AUTHORIZATION
== END 2021-10-09 17:25 | disposition home or self-care (01) ==
LOC: ED 14:04
DX: K29.70 Gastritis, unspecified, without bleeding (principal); R07.89 Other chest pain; I10 Essential (primary) hypertension; E78.00 Pure hypercholesterolemia, unspecified; E03.9 Hypothyroidism, unspecified; I25.2 Old myocardial infarction; J44.9 Chronic obstructive pulmonary disease, unspecified; Z87.891 Personal history of nicotine dependence; Z88.8 Allergy status to other drugs, medicaments and biological substances; Z88.5 Allergy status to narcotic agent; Z79.899 Other long term (current) drug therapy; Z79.51 Long term (current) use of inhaled steroids; Z79.52 Long term (current) use of systemic steroids; Z79.82 Long term (current) use of aspirin
CPT/HCPCS: 36415; 71045; 80053; 83735; 84484; 85025; 85060; 93005; 93010; 99285-25